=== PATIENT | male | born 1960 | race Caucasian/White ===

== ENCOUNTER 2020-03-28 13:21 | Emergency (ER) | payer OTHER ==
[~2020-03-28] VITALS: Ht 167.6 cm; Wt 86.2 kg
[~2020-03-28 13:21] MED LIST: ALEVE220 M1 PO; ASPIRIN EC81 MG PO; CLONIDINE HCL0.1 MG PO; COQ-1030 MG PO; FISH OIL 1,2001 EAC4 PO; LISINOPRIL20 MG PO; MOTRIN IB200 MG PO; MUCINEX600 MG PO; NYQUIL D COLD295 ML PO; PANTOPRAZOLE SO40 MG PO; PERCOCET 7.5-31 EACH PO; SIMVASTATIN20 MG PO; TUSSIN DM COUG120 ML PO; TYLENOL325 MG PO
[2020-03-28] MEDS ORDERED: OMEPRAZOLE20 MG PO (13:38)
[2020-03-28] MEDS ORDERED: KEFLEX500 MG PO (14:46)
== END 2020-03-28 15:15 | disposition home or self-care (01) ==
LOC: ED 13:21
DX: S81.842A Puncture wound with foreign body, left lower leg, initial encounter (principal); W29.8XXA Contact with other powered hand tools and household machinery, initial encounter; I10 Essential (primary) hypertension; Z79.899 Other long term (current) drug therapy
CPT/HCPCS: 10120; 73610; 99284-25

== ENCOUNTER 2022-02-15 01:00 | Emergency (ER) | payer OTHER ==
[~2022-02-15] VITALS: Ht 167.6 cm; Wt 86.2 kg
[~2022-02-15 01:00] MED LIST changes: +KEFLEX500 MG PO; +OMEPRAZOLE20 MG PO
[2022-02-15] MEDS ORDERED: ATORVASTATIN CA40 MG PO (01:05)
--- NOTE | 2022-02-16 07:12 | EKG ---
[facility] [address] [facility] [place], [place] [address] Signed Normal sinus rhythm Normal ECG When compared with ECG of 08-NOV-2018 09:22, No significant change was found Confirmed by SYMONE MIRANDA MD ([id number]) on 02/16/2022 7:11:54 AM Electronically Signed By: SYMONE MIRANDA MD 02/16/22711 PATIENT NAME: JALIL PRIEST Electrocardiogram DATE OF : 56 PHYSICIAN: SYMONE MIRANDA MD REPORT #: [id number] REPORT IS CONFIDENTIAL AND NOT TO BE RELEASED WITHOUT AUTHORIZATION
== END 2022-02-15 02:43 | disposition home or self-care (01) ==
LOC: ED 01:00
DX: I49.1 Atrial premature depolarization (principal); I10 Essential (primary) hypertension; Z79.899 Other long term (current) drug therapy
CPT/HCPCS: 36415; 80053; 83735; 84439; 84443; 84481; 84484; 85025; 93005; 93010; 99285-25

== ENCOUNTER 2025-05-02 12:07 | Emergency (ER) | payer MEDICARE, OTHER ==
[~2025-05-02] VITALS: Ht 167.6 cm; Wt 81.5 kg
[~2025-05-02 12:07] MED LIST changes: +ATORVASTATIN CA40 MG PO; +COQ-10100 MG PO; +FENOFIBRATE48 MG PO; +IRBESARTAN300 MG PO
[2025-05-02] MEDS ORDERED: VAZALORE81 MG PO (12:21)
[2025-05-02] MEDS ORDERED: TURMERIC500 M2 PO (12:21)
[2025-05-02] MEDS ORDERED: HYDROCHLOROTH12.5 M1 PO (12:22)
[2025-05-02 12:28] LABS: BASOPHILS 0.8 % (0.2-1.2); EOSINOPHILS 1.2 % (0.8-7.0); LYMPHOCYTES 16.4 % (21.8-53.1); MCH 31.5 PG (25.7-32.2); MCHC 34.3 g/dL (32.3-36.5); MCV 91.9 fL (79.0-92.2); MONOCYTES 6.2 % (5.3-12.2); NEUTROPHILS 75.0 % (34.0-67.9); RBC 5.40 M/uL (4.63-6.08)
[2025-05-02 12:46] LABS: ALT (SGPT) 32.0 U/L (14-59); AST (SGOT) 27.0 U/L (15-37); GLOMERULAR FILTRATION RATE,EST 68.0 mL/min (>60); PROTEIN, TOTAL 9.5 g/dL (6.4-8.2); UREA NITROGEN 17.0 mg/dL (7-18)
[2025-05-02] MEDS ORDERED: SODIUM CHLORIDE 0.9% 1,000 ML IV PRN (14:00)
[2025-05-02 14:17] LABS: BLOOD/HGB, URINE NEGATIVE (Negative); KETONE, URINE NEGATIVE (Negative); LEUK ESTERASE, URINE NEGATIVE (negative); NITRITE, URINE NEGATIVE (negative)
[2025-05-02 15:34] VITALS: BP 145/88
--- NOTE | 2025-05-03 07:41 | EKG ---
[facility] [address] [facility] [place] [address] Signed Normal sinus rhythm Cannot rule out Anterior infarct , age undetermined Abnormal ECG When compared with ECG of 15-FEB-2022 01:11, Vent. rate has increased BY 32 BPM Confirmed by Adis Cisneros DO ([id number]) on 05/03/2025 7:41:01 AM Electronically Signed By: ADIS CISNEROS DO 05/03/25 0741 PATIENT NAME: JALIL PRIEST ASHLEY Electrocardiogram DATE OF : 56 PHYSICIAN: ADIS CISNEROS DO REPORT #: [id number] REPORT IS CONFIDENTIAL AND NOT TO BE RELEASED WITHOUT AUTHORIZATION
== END 2025-05-02 15:35 | disposition home or self-care (01) ==
LOC: ED 12:07
PROVIDERS: Emergency Medicine
DX: D72.829 Elevated white blood cell count, unspecified (principal); D75.839 Thrombocytosis, unspecified; I10 Essential (primary) hypertension; Z79.82 Long term (current) use of aspirin; Z79.899 Other long term (current) drug therapy
CPT/HCPCS: 36415; 71045; 80053; 81003; 84484; 85025; 93005; 93010; 99284-25; J7030